=== PATIENT | male | born 2005 | race African-American/Black ===

== ENCOUNTER 2024-08-31 07:28 | Emergency (ER) | payer MEDICAID, OTHER ==
[~2024-08-31] VITALS: Ht 182.9 cm; Wt 74.2 kg
--- NOTE | 2024-08-31 07:58 | ED.PDOC ---
History of Present Illness HPI Comments 19-year-old male with no reported PMHx presents with a chief complaint of nausea and vomiting x onset 0200 this morning. Patient states that he smoked marijuana yesterday and began to have nausea and vomiting that started this morning around 0200. Patient denies any abdomen pain at this time or any diarrhea. Patient mentions that he has had about 7 episodes of emesis. No other symptoms or modifying factors present at this time. Chief Complaint: Nausea/Vomiting Time Seen by MD: 07:48 Reviewed Notes: Medications, Allergies Allergies: Coded Allergies: NO KNOWN ALLERGIES (Unverified , 08/31/24) Information Source: Patient Mode of Arrival: Ambulatory Severity: Moderate Timing: Hours Duration: Since onset Prehospital treatment: None Past Medical History PAST MEDICAL HISTORY: Denies Surgical History: Denies all surgeries Family History Family History: Reviewed,noncontributory to illness Social History Smoker: Non-Smoker Alcohol: Occasionally Drugs: Marijuana Lives In: Home Constitutional: denies: chills, diaphoresis, fatigue, fever, malaise, sweats, weakness, others EENTM: denies: blurred vision, double vision, ear bleeding, ear discharge, ear drainage, ear pain, ear ringing, eye pain, eye redness, hearing loss, mouth pain, mouth swelling, nasal discharge, nose bleeding, nose congestion, nose pain, photophobia, tearing, throat pain, throat swelling, voice changes, others Respiratory: denies: cough, hemoptysis, orthopnea, SOB at rest, shortness of breath, SOB with excertion, stridor, wheezing, others Cardiovascular: denies: chest pain, dizzy spells, diaphoresis, Dyspnea on exe rtion, edema, irregular heart beat, left arm pain, lightheadedness, palpitations, PND, syncope, others Gastrointestinal: reports: nausea, vomiting; denies: abdomen distended, abdominal pain, blood streaked bowels, constipated, diarrhea, dysphagia, difficulty swallowing, hematemesis, melena, poor appetite, poor fluid intake, rectal bleeding, rectal pain, others Genitourinary: denies: burning, dysuria, flank pain, frequency, hematuria, incontinence, penile discharge, penile sore, pain, testicle pain, testicle swelling, urgency, others Neurological: denies: dizziness, fainting, headache, left sided numbness, left sided weakness, numbness, paresthesia, pre-existing deficit, right sided numbness, right sided weakness, seizure, speech problems, tingling, tremors, weakness, others Musculoskeletal: denies: back pain, gout, joint pain, joint swelling, muscle pain, muscle stiffness, neck pain, others Integumetry: denies: bruises, change in color, change in hair/nails, dryness, laceration, lesions, lumps, rash, wounds, others Allergic/Immunocompromised: denies: Difficulty Healing, Frequent Infections, Hives, Itching, others Hematologic/Lymphatic: denies: anemia, blood clots, easy bleeding, easy bruising, swollen glands, others Endocrine: denies: excessive hunger, excessive sweating, excessive thirst, excessive urination, flushing, intolerance to cold, intolerance to heat, unexplained weight gain, unexplained weight loss, others Psychiatric: denies: anxiety, bipolar disorder, depression, hopeless, panic disorder, schizophrenia, sleepless, suicidal, others All Other Systems: Reviewed and Negative Physical Exam General Appearance: Mild Distress, Normal HEENT: Normal ENT Inspection, Pharynx Normal, TMs Normal Neck: Full Range of Motion, Non-Tender, Normal, Normal Inspection Respiratory: Chest Non-Tender, Lungs Clear, No Accessory Muscle Use, No Respiratory Distress, Normal Breath Sounds Cardiovascular: No Edema, No JVD, No Murmur, No Gallop, Normal Peripheral Pulses, Regular Rate/Rhythm Breast Exam: Deferred Gastrointestinal: No Organomegaly, Non Tender, No Pulsatile Mass, Normal Bowel Sounds, Soft Genitalia: Deferred Pelvic: Deferred Rectal: Deferred Extremities: No calf tenderness, Normal capillary refill, Normal inspection, Normal range of motion, Non-tender, No pedal edema Musculoskeletal : Apperance: Normal Neurologic: Alert, 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 Was a procedure done?: No Differential Dx Considerations may include: Marijuana use Dehydration X-Ray, Labs, Meds, VS Vital Signs Date Time Temp Pulse Resp B/P (MAP) Pulse Ox O2 Delivery O2 Flow Rate FiO2 08/31/24 07:51 97.5 86 16 125/80 (95) 99 Patient alert. Complaining of nausea vomiting. Abdomen is soft nontender. Vitals stable. Ambulating without difficulty. No sign of any distress. Was given Zofran. Establish intravenous access. Was given fluids. Explained to the patient. Was told to follow up with his primary care physician. Was told to come back if there is any problem. Time of 1ST Reevaluation: 08:18 Reevaluation 1ST: Improved Patient Education/Counseling: Diagnosis, Treatment, Prognosis Family Education/Counseling: Diagnosis, Treatment, Prognosis Departure 1 Departure Time of Disposition: 08:09 Impression: Primary Impression: Cannabis-induced disorder Disposition: 01 HOME / SELF CARE / HOMELESS Condition: Good e-Prescriptions Ondansetron Odt 4MG Tab (ZOFRAN PO) 4 Mg Tb 4 MG PO DAILY for 3 Days, #3 TAB ODT TAB-DISSOLVE IN MOUTH, THEN SWALLOW Prov: FRANKIE JUSTICE MD 08/31/24 Discharged With: Self Critical Care Note Critical Care Time?: No Stability Stability form required: No Heart Score Heart Score: Heart Score Response (Comments) Value History N/A 0 EKG N/A 0 Age N/A 0 Risk Factors N/A 0 Troponin N/A 0 Total 0 I personally scribed for FRANKIE JUSTICE MD ([email or web address]) on 08/31/24 at 07:58. Electronically submitted by Micha Yun ([email or web address]). FRANKIE JUSTICE MD Aug 31, 2024 07:58
[2024-08-31] MEDS ORDERED: ZOFR4T PO (08:10)
[2024-08-31 08:32] LABS: Basophils # (auto) 0 10 ^3/uL (0-0.2); Basophils % (auto) 0.2 % (0.0-2.0); Eosinophils # (auto) 0 10 ^3/uL (0-0.8); Eosinophils % (auto) 0.3 % (0.0-7.0); Hemoglobin 15.9 g/dL (13.5-17.5); Lymphocytes # (auto) 0.8 10 ^3/uL (0.4-5.4); Lymphocytes % (auto) 9.3 % (10.0-50.0); Mean Corpuscular Hemoglobin 28.9 pg (28.0-32.0); Mean Corpuscular Hgb Conc. 33.2 g/dL (32.0-36.0); Monocytes # (auto) 0.5 10 ^3/uL (0-1.3); Neutrophils # (auto) 7.6 10 ^3/uL (1.6-8.6); Neutrophils % (auto) 84.2 % (37.0-80.0); Nucleated Red Blood Cells % 0.1 %; Platelet Count (auto) 195 10^3/uL (140-450); Red Blood Cells 5.52 10^6/uL (4.5-5.90); Red Cell Distribution Width 13.8 % (11.8-14.3)
[2024-08-31 09:34] LABS: Amphetamine Screen, Urine Neg (NEGATIVE); Barbiturate Scree,Urine Neg (NEGATIVE); Benzodiazephine Screen, Urine Neg (NEGATIVE); Cannabinoid Screen, Urine Pos (NEGATIVE); Cocaine Screen, Urine Neg (NEGATIVE); Opiate Scree,Urine Neg (NEGATIVE); Phencyclidine Screen, Urine Neg (NEGATIVE)
[2024-08-31 10:00] VITALS: PULSE 81; RESP 17; O2SAT 97
[2024-08-31] MEDS: SODIUM CHLORIDE 0.9% 1,000 ML IV ONE (10:31)
[2024-08-31] MEDS: ONDANSETRON HCL 4 MG/2 ML VIAL IV ONE (10:39)
[2024-08-31 11:27] VITALS: BP 128/86; PULSE 91; RESP 16; TEMP 98.2; O2SAT 97
== END 2024-08-31 11:29 | disposition home or self-care (01) ==
LOC: ER 07:28
DX: R11.2 Nausea with vomiting, unspecified (principal); F12.10 Cannabis abuse, uncomplicated
CPT/HCPCS: 36415; 80307; 85025; 96361; 96374; 99283; J2405; J7030

== ENCOUNTER 2024-10-04 20:13 | Emergency (ER) | payer MEDICAID ==
[~2024-10-04] VITALS: Ht 182.9 cm; Wt 72.5 kg
[~2024-10-04 20:13] MED LIST: ZOFR4T PO
--- NOTE | 2024-10-04 23:10 | DVH ---
CLINICAL INDICATION: left elbow pain TECHNIQUE: XY L ELBOW 3 VIEW XRAY Comparison: None FINDINGS/IMPRESSION: Questionable nondisplaced acute traumatic fracture of the radial head. Probable small elbow joint effusion
[2024-10-04] MEDS ORDERED: IBUP-1456 PO (23:21)
--- NOTE | 2024-10-04 23:21 | ED.PDOC ---
Musculoskeletal HPI Comments 19-YEAR-OLD MALE PRESENTS TO ER WITH COMPLAINTS OF LEFT ELBOW PAIN X1 DAY. PATIENT REPORTS HE STARTED EXPERIENCING PAIN/SWELLING TO LEFT ELBOW S/P FALLING ONTO HIS LEFT ARM ONTO HARD GROUND AFTER JUMPING AN APPROXIMATELY 5 FT HIGH FENCE AT 6:00 P.M. PRIOR TO ARRIVAL TO ER. DENIES HEAD INJURY/LOC. HE RATES HIS CURRENT PAIN A 6/10 TO LEFT ELBOW WITHOUT RADIATION. DENIES USE OF MEDICATIONS FOR CURRENT SYMPTOMS. DENIES LEFT SHOULDER PAIN, LEFT FOREARM PAIN, LEFT WRIST PAIN, LEFT HAND PAIN, NUMBNESS/TINGLING OR ANY FURTHER SYMPTOMS/COMPLAINTS Chief Complaint: Upper Extremity Time Seen by MD: 21:22 Primary Care Provider: ZBIGNIEW Reviewed Notes: Nurses Notes, Medications, Allergies Allergies: Coded Allergies: NO KNOWN ALLERGIES (Unverified , 08/31/24) Home Meds Active Scripts Ibuprofen (Ibuprofen) 800 Mg Tab, 1 TAB PO TID PRN, #30 TAB 0 Refills Prov:CANDIDO BAEZ 10/04/24 Ondansetron Odt 4MG Tab (ZOFRAN PO) 4 Mg Tb, 4 MG PO DAILY for 3 Days, #3 TAB ODT TAB-DISSOLVE IN MOUTH, THEN SWALLOW Prov:FRANKIE JUSTICE MD 08/31/24 Information Source: Patient Mode of Arrival: Ambulatory Past Medical History PAST MEDICAL HISTORY: Denies Surgical History: Denies all surgeries Family History Family History: Unknown Social History Smoker: Non-Smoker Alcohol: Denies ETOH Use Drugs: Marijuana Lives In: Home Constitutional: denies: chills, diaphoresis, fatigue, fever, malaise, sweats, weakness, others EENTM: denies: blurred vision, double vision, ear bleeding, ear discharge, ear drainage, ear pain, ear ringing, eye pain, eye redness, hearing loss, mouth pain, mouth swelling, nasal discharge, nose bleeding, nose congestion, nose pain, photophobia, tearing, throat pain, throat swelling, voice changes, others Respiratory: denies: cough, hemoptysis, orthopnea, SOB at rest, shortness of breath, SOB with excertion, stridor, wheezing, others Cardiovascular: denies: chest pain, dizzy spells, diaphoresis, Dyspnea on exertion, edema, irregular heart beat, left arm pain, lightheadedness, palpitations, PND, syncope, others Gastrointestinal: denies: abdomen distended, abdominal pain, blood streaked bowels, constipated, diarrhea, dysphagia, difficulty swallowing, hematemesis, melena, nausea, poor appetite, poor fluid intake, rectal bleeding, rectal pain, vomiting, others Genitourinary: denies: burning, dysuria, flank pain, frequency, hematuria, incontinence, penile discharge, penile sore, pain, testicle pain, testicle swelling, urgency, others Neurological: denies: dizziness, fainting, headache, left sided numbness, left sided weakness, numbness, paresthesia, pre-existing deficit, right sided numbness, right sided weakness, seizure, speech problems, tingling, tremors, weakness, others Musculoskeletal: reports: others ( STATED IN HPI) Integumetry: reports: others ( STATED IN HPI) Allergic/Immunocompromised: denies: Difficulty Healing, Frequent Infections, Hives, Itching, others Hematologic/Lymphatic: denies: anemia, blood clots, easy bleeding, easy bruising, swollen glands, others Endocrine: denies: excessive hunger, excessive sweating, excessive thirst, excessive urination, flushing, intolerance to cold, intolerance to heat, unexplained weight gain, unexplained weight loss, others Psychiatric: denies: anxiety, bipolar disorder, depression, hopeless, panic disorder, schizophrenia, sleepless, suicidal, others Physical Exam General Appearance: No Apparent Distress HEENT: PERRL/EOMI Neck: Full Range of Motion, Non-Tender, Normal Respiratory: Chest Non-Tender, Lungs Clear, No Accessory Muscle Use, No Respiratory Distress, Normal Breath Sounds Cardiovascular: No Murmur, No Gallop, Regular Rate/Rhythm Breast Exam: Deferred Gastrointestinal: NOT DONE Genitalia: Deferred Pelvic: Deferred Rectal: Deferred Extremities: Normal capillary refill, Normal range of motion Musculoskeletal : Extremity Location: Elbow (TTP/MILD SWELLING/1 CM ABRASION NOTED TO REGION OF LEFT RADIAL HEAD. NO OTHER TTP TO LEFT UPPER EXTREMITY NOTED. PULSES INTACT. PATIENT ABLE TO FULLY MOVE THE LEFT ELBOW. 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 Was a procedure done?: No Sedation Sedation?: No Differential Diagnosis EXT Differential Diagnosis: Dislocation, Laceration, Neurovascular injury X-Ray, Labs, Meds, VS Vital Signs Date Time Temp Pulse Resp B/P (MAP) Pulse Ox O2 Delivery O2 Flow Rate FiO2 10/04/24 23:22 Room Air* 0 21 10/04/24 20:38 98.1 78 16 138/101 (113) 99 98.1 PATIENT: DANIELLE SOW ISAIAHACCT: [id number] UNIT: [id number] : 2005 LOC: ER ROOM / BED: / AGE / SEX: 19 / M ADM STATUS: REG ER SERVICE 28 ORDERING PHYSICIAN: CANDIDO BAEZ PROCEDURE(s): LELB3 - L ELBOW 3 VIEW XRAY REASON: left elbow pain ORDER NUMBER(s): [id number], ACCESSION NUMBER(s): [id number] CLINICAL INDICATION: left elbow pain TECHNIQUE: XY L ELBOW 3 VIEW XRAY Comparison: None FINDINGS/IMPRESSION: Questionable nondisplaced acute traumatic fracture of the radial head. Probable small elbow joint effusion ATED BY: CANDY FRIEDMAN MD DICTATED DATE/TIME: 10/04/242307 SIGNED BY: CANDY FRIEDMAN MD SIGNED DATE/TIME: 10/04/242307 CC: LEFT ELBOW X-RAY REVIEWED PATIENT NEUROVASCULARLY INTACT LEFT POSTERIOR LONG-ARM SPLINT APPLIED LEFT ARM SLING APPLIED ADVISED ON REST/ NO STRENUOUS ACTIVITY, AND ALTERNATE ICE ON/OFF NEEDED FOR PAIN/SWELLING ADVISED TO FOLLOW UP WITH PCP AND ORTHOPEDICS IN 1-2 DAYS PATIENT VERBALIZED UNDERSTANDING AND AGREEABLE WITH CURRENT PLAN OF CARE ADVISED TO RETURN TO ER IMMEDIATELY IF SYMPTOMS WORSEN Images Reviewed?: Images reviewed and evaluated by me Time of 1ST Reevaluation: 22:54 Reevaluation 1ST: N/A Patient Education/Counseling: Diagnosis, Treatment, Prognosis, Need For Follow Up Family Education/Counseling: No Family Present Departure 1 Departure Time of Disposition: 23:12 Impression: Primary Impression: Fracture of head of left radius Qualified Codes: S52.125A - Nondisplaced fracture of head of left radius, initial encounter for closed fracture Disposition: HOME / SELF CARE / HOMELESS Condition: Stable e-Prescriptions Ibuprofen (Ibuprofen) 800 Mg Tab 1 TAB PO TID PRN, #30 TAB 0 Refills Prov: CANDIDO BAEZ 10/04/24 Discharged With: Friend Critical Care Note Critical Care Time?: No Stability Stability form required: No Heart Score Heart Score: Heart Score Response (Comments) Value History N/A 0 EKG N/A 0 Age N/A 0 Risk Factors N/A 0 Troponin N/A 0 Total 0 CANDIDO BAEZ Oct 04, 2024 23:21
[2024-10-04 23:24] VITALS: BP 138/101; PULSE 78; RESP 16; TEMP 98.1; O2SAT 99
== END 2024-10-04 23:40 | disposition home or self-care (01) ==
LOC: ER 20:13
DX: S52.125A Nondisplaced fracture of head of left radius, initial encounter for closed fracture (principal); Z79.899 Other long term (current) drug therapy; F12.90 Cannabis use, unspecified, uncomplicated; W19.XXXA Unspecified fall, initial encounter; Y93.89 Activity, other specified; Y92.89 Other specified places as the place of occurrence of the external cause; Y99.8 Other external cause status
CPT/HCPCS: 29105; 73080